=== PATIENT | female | born 1985 | race Caucasian/White ===

== ENCOUNTER 2018-01-03 17:02 | Emergency (ER) | payer OTHER ==
[~2018-01-03 17:02] MED LIST: CODEINE/GUAIFE120 M2 PO; PERCOCET 325 MG1 TA2 PO; SOMA250 MG PO; XANAX 1MG1 MG PO; XANAX1 M1 PO
[2018-01-03 17:16] VITALS: BP 104/67
[2018-01-03] MEDS ORDERED: OXYCONTIN80 M1 PO (17:21)
[2018-01-03 17:33] LABS: EOS # 0.2 (0.04-0.40); EOS % 2.5 % (1.0-5.0); HEMATOCRIT 41.7 % (37.0-47.0); HEMOGLOBIN 14.4 g/dL (12.5-16.0); LYMPH# 2.7 (1.50-4.00); MEAN CELL VOLUME 91 fl (78-100); MEAN CORPUSCULAR HEMOGLOBIN 31 pg (27-31); MEAN CORPUSCULAR HGB CONC 35 g/dL (33-37); MEAN PLATELET VOLUME 11.1 fl (7.4-10.4); MONO # 0.5 (0.20-0.80); NEU # 2.6 (1.40-6.50); PLATELET COUNT 254 K/mm3 (130-400); RED BLOOD COUNT 4.59 M/mm3 (4.10-5.30); RED CELL DISTRIBUTION WIDTH 12.4 % (11.5-14.5)
[2018-01-03 17:46] LABS: ALBUMIN 4.2 g/dL (3.5-5.0); POTASSIUM 4.3 mmol/L (3.6-5.0); TOTAL BILIRUBIN 0.7 mg/dL (0.2-1.3); TOTAL PROTEIN 7.1 g/dL (6.3-8.2)
[2018-01-03] MEDS ORDERED: PERCOCET 325 MG1 TA2 PO (20:35)
[2018-01-03] MEDS ORDERED: MIRALAX17 GM PO (20:35)
== END 2018-01-03 20:49 | disposition home or self-care (01) ==
LOC: ED 17:02
PROVIDERS: Nurse Practitioner Primary Care
DX: K59.00 Constipation, unspecified (principal); M54.32 Sciatica, left side; G89.29 Other chronic pain; Z79.891 Long term (current) use of opiate analgesic; Z79.899 Other long term (current) drug therapy
CPT/HCPCS: J1885; J2270; J2360; J2930; J3010; Q9967

== ENCOUNTER → 2020-04-16 | Outpatient (CLI) | payer OTHER ==
[~2020-04-16] MED LIST changes: +MIRALAX17 GM PO; +ONDANSETRON ODT8 MG PO; +OXYCONTIN80 M1 PO
== END ==
LOC: RAD 09:16
DX: G44.52 New daily persistent headache (NDPH) (principal); M54.2 Cervicalgia